=== PATIENT | female | born 1975 | race Caucasian/White ===

== ENCOUNTER 2017-05-17 08:38 | Outpatient (CLI) | payer OTHER ==
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
== END 2017-05-17 08:39 | disposition home or self-care (01) ==
LOC: CT 08:38
PROVIDERS: ATTEND Family Medicine
DX: S72.21XK Displaced subtrochanteric fracture of right femur, subsequent encounter for closed fracture with nonunion (principal); Z97.5 Presence of (intrauterine) contraceptive device; Z98.890 Other specified postprocedural states